=== PATIENT | male | born 1985 | race Two or more races ===

== ENCOUNTER 2025-01-14 09:12 | Inpatient (IN) | payer MEDICAID, OTHER ==
[~2025-01-14] VITALS: Ht 177.8 cm; Wt 117.4 kg
--- NOTE | 2025-01-14 09:34 | ED.PDOC ---
GI ASSESSMENT HPI Comments 39 year old male presents to the ED via EMS with a chief complaint of nausea/vomiting onset today (01/14/25) around 03:00. Per EMS, patient woke up this morning experiencing nausea/vomiting, tarry black in color, hypotensive with BP 70 systolic. Patient states he has been experiencing abdominal pain for the past week, experienced similar pain a few years ago, was told to not eat spicy food, has been consuming spicy food lately. Denies any PMHx as well as diarrhea, constipation, headache, dizziness, chest pain, shortness of breath, fevers, chills. No other symptoms or modifying factors present at this time. Chief Complaint: Nausea/Vomiting Time Seen by MD: 09:15 Primary Care Provider: NONE Reviewed Notes: Medications, Allergies Allergies: Coded Allergies: NO KNOWN ALLERGIES (Unverified , 01/14/25) Information Source: Patient, Emergency Med Personnel Mode of Arrival: EMS Timing: Hours Duration: Since onset Prehospital treatment: None Quality: Sharp Vomitus: Tarry Black Severity: Moderate Recent: None Recent Hx of: None Pain Location: Diffuse Modifying Factors: Nothing Associated sign and symptoms: Nausea, Vomiting, Abdominal Pain Past Medical History PAST MEDICAL HISTORY: Denies Surgical History: Denies all surgeries Family History Family History: Reviewed,noncontributory to illness, No family hx of Cancer, No family hx of DM, No family hx of Heart gama, No family hx of HTN, No family hx ofKidney gama, No family hx of Liver gama, No family hx of Lung gama, No family hx of Stroke Social History Smoker: Non-Smoker Alcohol: Denies ETOH Use Drugs: Denies Drug Use Lives In: Home Constitutional: denies: chills, diaphoresis, fatigue, fever, malaise, sweats, weakness, others EENTM: denies: blurred vision, double vision, ear bleeding, ear discharge, ear drainage, ear pain, ear ringing, eye pain, eye redness, hearing loss, mouth pain, mouth swelling, nasal discharge, nose bleeding, nose congestion, nose pain, photophobia, tearing, throat pain, throat swelling, voice changes, others Respiratory: denies: cough, hemoptysis, orthopnea, SOB at rest, shortness of breath, SOB with excertion, stridor, wheezing, others Cardiovascular: denies: chest pain, dizzy spells, diaphoresis, Dyspnea on exertion, edema, irregular heart beat, left arm pain, lightheadedness, palpitations, PND, syncope, others Gastrointestinal: reports: nausea, vomiting; denies: abdomen distended, abdominal pain, blood streaked bowels, constipated, diarrhea, dysphagia, difficulty swallowing, hematemesis, melena, poor appetite, poor fluid intake, rectal bleeding, rectal pain, others Genitourinary: denies: burning, dysuria, flank pain, frequency, hematuria, incontinence, penile discharge, penile sore, pain, testicle pain, testicle swelling, urgency, others Neurological: reports: others (hypotension); denies: dizziness, fainting, headache, left sided numbness, left sided weakness, numbness, paresthesia, pre- existing deficit, right sided numbness, right sided weakness, seizure, speech problems, tingling, tremors, weakness Musculoskeletal: denies: back pain, gout, joint pain, joint swelling, muscle pain, muscle stiffness, neck pain, others Integumetry: denies: bruises, change in color, change in hair/nails, dryness, laceration, lesions, lumps, rash, wounds, others Allergic/Immunocompromised: denies: Difficulty Healing, Frequent Infections, Hives, Itching, others Hematologic/Lymphatic: denies: anemia, blood clots, easy bleeding, easy bruising, swollen glands, others Endocrine: denies: excessive hunger, excessive sweating, excessive thirst, excessive urination, flushing, intolerance to cold, intolerance to heat, unexplained weight gain, unexplained weight loss, others Psychiatric: denies: anxiety, bipolar disorder, depression, hopeless, panic dis order, schizophrenia, sleepless, suicidal, others All Other Systems: Reviewed and Negative Physical Exam General Appearance: No Apparent Distress, Normal HEENT: Normal ENT Inspection, Pharynx Normal, TMs Normal Neck: Full Range of Motion, Non-Tender, Normal, Normal Inspection Respiratory: Chest Non-Tender, Lungs Clear, No Accessory Muscle Use, No Respiratory Distress, Normal Breath Sounds Cardiovascular: No Edema, No JVD, No Murmur, No Gallop, Normal Peripheral Pulses, Regular Rate/Rhythm Breast Exam: Deferred Gastrointestinal: No Organomegaly, Non Tender, No Pulsatile Mass, Normal Bowel Sounds, Soft Genitalia: Deferred Pelvic: Deferred Rectal: Deferred Extremities: No calf tenderness, Normal capillary refill, Normal inspection, Normal range of motion, Non-tender, No pedal edema Musculoskeletal : Apperance: Normal Neurologic: Alert, drawer waxer II-XII nml as Tested, No Motor Deficits, Normal Affect, Normal Mood, No Sensory Deficits Cerebellar Function: Normal Reflexes: Normal Skin: Dry, Normal Color, Warm Lymphatic: No Adenopathy Was a procedure done? Was a procedure done?: No GI differential Dx Differential Diagnosis: Gastritis/PUD, Gastroenteritis, UTI, Urolithiasis, De hydration, Electrolyte Imbalance, Viral X-Ray, Labs, Meds, VS Vital Signs Date Time Temp Pulse Resp B/P (MAP) Pulse Ox O2 Delivery O2 Flow Rate FiO2 01/14/25 10:33 88 12 98 Room Air* 0 21 01/14/25 09:23 97.9 98 15 83/57 (66) 100 97.9 01/14/25 09:16 97.9 98 15 83/57 (66) 100 97.9 Lab Test 01/14/25 09:26 Range/Units White Blood Count 15.2 H 4.4-10.8 10^3/uL Red Blood Count 4.46 L 4.5-5.90 10^6/uL Hemoglobin 14.1 13.5-17.5 g/dL Hematocrit 41.7 41.0-53.0 % Mean Corpuscular Volume 93.4 80.0-100.0 fL Mean Corpuscular Hemoglobin 31.7 28.0-32.0 pg Mean Corpuscular Hemoglobin Concent 33.9 32.0-36.0 g/dL Red Cell Distribution Width 13.1 11.8-14.3 % Platelet Count 214 140-450 10^3/uL Mean Platelet Volume 8.2 6.9-10.8 fL Neutrophils (%) (Auto) 79.3 37.0-80.0 % Lymphocytes (%) (Auto) 14.0 10.0-50.0 % Monocytes (%) (Auto) 5.2 0.0-12.0 % Eosinophils (%) (Auto) 1.1 0.0-7.0 % Basophils (%) (Auto) 0.4 0.0-2.0 % Neutrophils # (Auto) 12.1 H 1.6-8.6 10 ^3/uL Lymphocytes # (Auto) 2.1 0.4-5.4 10 ^3/uL Monocytes # (Auto) 0.8 0-1.3 10 ^3/uL Eosinophils # (Auto) 0.2 0-0.8 10 ^3/uL Basophils # (Auto) 0.1 0-0.2 10 ^3/uL Nucleated Red Blood Cells 0.0 % Sodium Level 144 136-145 mmol/L Potassium Level 4.5 3.5-5.1 mmol/L Chloride Level 108 H 98-107 mmol/L Carbon Dioxide Level 26 20-31 mmol/L Anion Gap 10 5-15 Blood Urea Nitrogen 37 H 9-23 mg/dL Creatinine 1.12 0.700-1.30 mg/dL Glomerular Filtration Rate Calc 86 >90 mL/min BUN/Creatinine Ratio 33.0 H 10.0-20.0 Serum Glucose 147 H 74-106 mg/dL Lactic Acid Level 2.0 0.4-2.0 mmol/L Calcium Level 9.2 8.7-10.4 mg/dL Total Bilirubin 0.5 0.2-1.0 mg/dL Aspartate Amino Transferase (AST) < 8 L 13-40 U/L Alanine Aminotransferase (ALT) 14 7-40 U/L Alkaline Phosphatase 77 46-116 U/L Total Protein 7.0 5.7-8.2 g/dL Albumin 4.3 3.2-4.8 g/dL Lipase 27 12-53 U/L Current Medications Medications (Trade) Dose Ordered Sig/Leidy Route Start Time Stop Time Status Last Admin Sodium Chloride 3,000 ml @ 1,000 mls/hr Q3H ONCE IV 01/14/25 09:30 01/14/25 12:29 01/14/25 09:45 Ondansetron HCl (Zofran) 4 mg ONCE ONCE IV 01/14/25 09:30 01/14/25 09:31 DC 01/14/25 09:45 Pantoprazole Sodium (Protonix) 80 mg ONCE ONCE IV 01/14/25 09:30 01/14/25 09:31 DC 01/14/25 09:45 Time of 1ST Reevaluation: 09:45 Reevaluation 1ST: Unchanged Patient Education/Counseling: Diagnosis, Treatment, Prognosis Family Education/Counseling: No Family Present Additional Information The following tests were ordered, and results were reviewed by me: CBC, CMP, LA W/REFLEX, LIPASE, XY CHEST Additional Information was gathered from interviewing the following independent historians: EMS I reviewed and agreed with the following test results read by other providers: XY CHEST I discussed treatment and results with medical personnel and: patient Comprehensive systems review obtained and negative except for what is stated in the HPI. Departure 1 Departure Time of Disposition: 11:11 (Patient presents with intractable nausea and vomiting and hypotension. Patient is not septic. We will resuscitate patient with fluids treat patient with Protonix bolus admit patient for further workup and expert consultation) Impression: Primary Impression: Hypotension Qualified Codes: I95.9 - Hypotension, unspecified Additional Impression: Intractable abdominal pain Disposition: ADMITTED INPATIENT Admit to: Med Surg Condition: Serious Critical Care Note Critical Care Time?: Yes Critical care comment: Hypotension Authorized and Performed by: Miguel aPz MD Total critical care time: Approximately 38 minutes Due to a high probability of clinically significant, life threatening deterioration, the patient required my highest level of preparedness to intervene emergently and I personally spent this critical care time directly and personally managing the patient. This critical care time included obtaining a history; examining the patient; pulse oximetry; ordering and review of studies; arranging urgent treatment with development of a management plan; evaluation of patient's response to treatment; frequent reassessment; and, discussions with other providers. This critical care time was performed to assess and manage the high probability of imminent, life-threatening deterioration that could result in multi-organ failure. It was exclusive of separately billable procedures and treating other patients and teaching time. Please see my other sections and the rest of the note for further information on patient assessment and treatment. Stability Stability form required: No I personally scribed for MIGUEL PAZ MD ([email or web address]) on 01/14/25 at 09:34. Electronically submitted by Hina Hernandez ([email or web address]). I personally scribed for MIGUEL PZA MD ([email or web address]) on 01/14/25 at 09:34. Electronically submitted by Hina Hernandez ([email or web address]). MIGUEL PAZ MD January 14, 2025 09:34
[2025-01-14 09:45] LABS: Basophils # (auto) 0.1 10 ^3/uL (0-0.2); Basophils % (auto) 0.4 % (0.0-2.0); Eosinophils # (auto) 0.2 10 ^3/uL (0-0.8); Eosinophils % (auto) 1.1 % (0.0-7.0); Hematocrit 41.7 % (41.0-53.0); Hemoglobin 14.1 g/dL (13.5-17.5); Lymphocytes # (auto) 2.1 10 ^3/uL (0.4-5.4); Mean Corpuscular Hemoglobin 31.7 pg (28.0-32.0); Mean Corpuscular Hgb Conc. 33.9 g/dL (32.0-36.0); Mean Corpuscular Volume 93.4 fL (80.0-100.0); Monocytes # (auto) 0.8 10 ^3/uL (0-1.3); Monocytes % (auto) 5.2 % (0.0-12.0); Neutrophils # (auto) 12.1 10 ^3/uL (1.6-8.6); Neutrophils % (auto) 79.3 % (37.0-80.0); Platelet Count (auto) 214 10^3/uL (140-450); Red Blood Cells 4.46 10^6/uL (4.5-5.90); Red Cell Distribution Width 13.1 % (11.8-14.3); White Blood Cell 15.2 10^3/uL (4.4-10.8)
[2025-01-14] MEDS: ONDANSETRON HCL 4 MG/2 ML VIAL IV ONE (09:45)
[2025-01-14] MEDS: SODIUM CHLORIDE 0.9% 3,000 ML IV ONE (09:45)
[2025-01-14] MEDS: PANTOPRAZOLE 40 MG/10 ML VIAL INJ IV ONE (09:45)
[2025-01-14 10:07] LABS: Alanine Aminotransferase 14 U/L (7-40); Alkaline Phosphatase 77 U/L (46-116); Anion Gap 10 (5-15); Calcium 9.2 mg/dL (8.7-10.4); Carbon Dioxide 26 mmol/L (20-31); Potassium 4.5 mmol/L (3.5-5.1); Sodium 144 mmol/L (136-145)
[2025-01-14 10:08] LABS: Albumin 4.3 g/dL (3.2-4.8); Bilirubin, Total 0.5 mg/dL (0.2-1.0)
[2025-01-14 10:19] LABS: Aspartate Aminotransferase < 8 U/L (13-40); Blood Urea Nitrogen 37 mg/dL (9-23); Chloride 108 mmol/L (98-107); Glucose 147 mg/dL (74-106)
[2025-01-14 10:31] LABS: Lipase 27 U/L (12-53)
--- NOTE | 2025-01-14 10:31 | DVH ---
EXAM: XY CHEST PORTABLE Indication: vomiting blood Technique: Single frontal view of the chest was obtained Comparison: None FINDINGS: Lines and Tubes: None Lungs: No focal consolidation. Pleura: No effusion. No pneumothorax. Cardiomediastinal contours: Unremarkable Bones: No acute osseous abnormality. IMPRESSION: No acute cardiopulmonary disease.
[2025-01-14 10:33] VITALS: PULSE 88; RESP 12; O2SAT 98
[2025-01-14] MEDS ORDERED: HYDROcodone-ACET 5/325MG TAB PO PRN (15:15)
[2025-01-14] MEDS ORDERED: NITROGLYCERIN 0.4 MG SL TAB SL PRN (15:15)
[2025-01-14] MEDS ORDERED: DEXTROSE (50%) 50ML SYRG IV PRN (15:15)
[2025-01-14] MEDS ORDERED: MORPHINE SULFATE INJ 2 MG/ml SYRG IV PRN ×2 (15:15)
[2025-01-14] MEDS ORDERED: ONDANSETRON HCL 4 MG/2 ML VIAL IV PRN (15:15)
[2025-01-14] MEDS ORDERED: ACETAMINOPHEN 325 MG TAB PO PRN (15:15)
--- NOTE | 2025-01-14 15:21 | DVHHP2 ---
History of Present Illness Reason for Visit: Abdominal pain History of Present Illness Liza Roger is a 39-year-old male with no reported past medical history who presents to the ED with nausea, vomiting, and abdominal pain x3 weeks. Patient states that that he has been vomiting dark emesis x 5 since 3am today. Patient states that there are no triggering or alleviating factors. Patient denies any chest pain, recent travels, recent ingestion of spoiled food, recent trauma or injury, fever, chills, lightheadedness, weakness, dizziness, diarrhea, hematochezia, melena, or shortness of breath. Patient does report that he had an EGD done before and states that there was a tear was also prescribed medication but does not know what the name was. He states that he does not take any current medications. Past Surgical History: Other (EGD) Family History: None Smoke: <1 pack per day ALCOHOL: none (Quit) Drugs: None Lives: with Family Domestic Violence: Neg Review of Systems Gastrointestinal: Nausea, Vomiting, Abdominal Pain, Other (Hematemesis) Allergies: Coded Allergies: NO KNOWN ALLERGIES (Unverified , 01/14/25) Medications Current Medications Medications Dose Ordered Sig/Leidy Route Start Time Stop Time Status Last Admin Dose Admin Piperacillin Sod/ Tazobactam Sod 100 ml @ 25 mls/hr Q6HR IV 01/14/25 15:15 UNV Acetaminophen/ Hydrocodone Bitart 1 tab Q4HP PRN PO 01/14/25 15:15 UNV Ondansetron HCl 4 mg Q4HP PRN IV 01/14/25 15:15 UNV Acetaminophen 650 mg Q6HP PRN PO 01/14/25 15:15 UNV Morphine Sulfate 2 mg Q4HPRN PRN IV 01/14/25 15:15 UNV Nitroglycerin 0.4 mg Q5MINP PRN SL 01/14/25 15:15 UNV Morphine Sulfate 2 mg Q30M PRN IV 01/14/25 15:15 UNV Diagnostic Test (Pha) 1 strip ACHS 01/14/25 17:00 UNV Insulin Human Regular ACHS SC 01/14/25 17:00 UNV Dextrose 50 ml UD PRN IV 01/14/25 15:15 UNV Exam Vital Signs Vital Signs Date Time Temp Pulse Resp B/P (MAP) Pulse Ox O2 Delivery O2 Flow Rate FiO2 01/14/25 13:14 97 12 101/72 (82) 94 01/14/25 10:33 Room Air* 0 21 01/14/25 09:23 97.9 97.9 General Appearance: Alert, Oriented X3, Cooperative, No acute distress HEENT: Atraumatic, PERRLA, EOMI, Mucous membr. moist/pink Respiratory: Clear to auscultation, Normal air movement Cardiovascular: Regular rate, Normal S1, Normal S2 Abdominal: Normal bowel sounds, Soft Extremities: No clubbing, No cyanosis, No edema, Normal pulses, No tenderness/swelling Skin: No significant lesion Neuro: Normal speech, Strength at 01/03 X4 ext, Normal tone, Sensation intact Psych/Mental Status: Mental status NL, Mood NL Labs/Xrays Labs Test 01/14/25 09:26 Range/Units White Blood Count 15.2 H 4.4-10.8 10^3/uL Red Blood Count 4.46 L 4.5-5.90 10^6/uL Hemoglobin 14.1 13.5-17.5 g/dL Hematocrit 41.7 41.0-53.0 % Mean Corpuscular Volume 93.4 80.0-100.0 fL Mean Corpuscular Hemoglobin 31.7 28.0-32.0 pg Mean Corpuscular Hemoglobin Concent 33.9 32.0-36.0 g/dL Red Cell Distribution Width 13.1 11.8-14.3 % Platelet Count 214 140-450 10^3/uL Mean Platelet Volume 8.2 6.9-10.8 fL Neutrophils (%) (Auto) 79.3 37.0-80.0 % Lymphocytes (%) (Auto) 14.0 10.0-50.0 % Monocytes (%) (Auto) 5.2 0.0-12.0 % Eosinophils (%) (Auto) 1.1 0.0-7.0 % Basophils (%) (Auto) 0.4 0.0-2.0 % Neutrophils # (Auto) 12.1 H 1.6-8.6 10 ^3/uL Lymphocytes # (Auto) 2.1 0.4-5.4 10 ^3/uL Monocytes # (Auto) 0.8 0-1.3 10 ^3/uL Eosinophils # (Auto) 0.2 0-0.8 10 ^3/uL Basophils # (Auto) 0.1 0-0.2 10 ^3/uL Nucleated Red Blood Cells 0.0 % Sodium Level 144 136-145 mmol/L Potassium Level 4.5 3.5-5.1 mmol/L Chloride Level 108 H 98-107 mmol/L Carbon Dioxide Level 26 20-31 mmol/L Anion Gap 10 5-15 Blood Urea Nitrogen 37 H 9-23 mg/dL Creatinine 1.12 0.700-1.30 mg/dL Glomerular Filtration Rate Calc 86 >90 mL/min BUN/Creatinine Ratio 33.0 H 10.0-20.0 Serum Glucose 147 H 74-106 mg/dL Lactic Acid Level 2.0 0.4-2.0 mmol/L Calcium Level 9.2 8.7-10.4 mg/dL Total Bilirubin 0.5 0.2-1.0 mg/dL Aspartate Amino Transferase (AST) < 8 L 13-40 U/L Alanine Aminotransferase (ALT) 14 7-40 U/L Alkaline Phosphatase 77 46-116 U/L Total Protein 7.0 5.7-8.2 g/dL Albumin 4.3 3.2-4.8 g/dL Lipase 27 12-53 U/L Exam: CT CT AB PEL WO CON-NO ORAL OR IV History: abd pain Comparison Study: None TECHNIQUE: Multidetector CT of the abdomen and pelvis without IV contrast. Axial, coronal and sagittal multiplanar reformats were obtained from the axial data set by the technologist. Radiation Dose Information: CT Dose: CTDI volume is 17.67 mGy. Dose-length product is 974.21 mGy*cm FINDINGS: The lung bases are clear. Partially visualized heart is unremarkable. Liver, spleen, gallbladder, pancreas and adrenal glands are unremarkable. 3.2 cm right renal cyst. Otherwise, kidneys, ureters and urinary bladder unremarkable. Prostate is unremarkable. Mild gastric wall thickening. Small bowel loops are unremarkable. Appendix is unremarkable. Moderate to large amount of fecal material within the colon. No evidence of intraperitoneal free air or free fluid. No evidence of aortic aneurysm. Mild atherosclerotic calcification of the aorta. No significant lymphadenopathy. Tiny fat containing umbilical hernia. Soft tissues unremarkable. No acute bony abnormalities. Sclerotic focus of the right iliac bone and right proximal femur which may represent bone islands with blastic lesions not excluded. IMPRESSION: Mild gastric wall thickening which may be be from inadequate distention/gastritis. Moderate to large amount of fecal material within the colon. 3.2 cm right renal cyst. EXAM: XY CHEST PORTABLE Indication: vomiting blood Technique: Single frontal view of the chest was obtained Comparison: None FINDINGS: Lines and Tubes: None Lungs: No focal consolidation. Pleura: No effusion. No pneumothorax. Cardiomediastinal contours: Unremarkable Bones: No acute osseous abnormality. IMPRESSION: No acute cardiopulmonary disease. Assessment/Plan Assessment/Plan Assessment Intractable abdominal pain rule out GI bleed Leukocytosis likely due to gastritis Hyperglycemia 3.2 cm right renal cyst Plan Admit to [facility] CT abdomen and pelvis noted Stool occult Bowel regimen Hemoglobin A1c ISS and Accu-Cheks UA Antiemetics Pain management Diet DVT prophylaxis-not indicated patient ambulating, hold anti coags due to hematemesis PUD prophylaxis-PPIs Discussed plan of care with patient and nurse GI consult Plan discussed with: Patient My Orders Orders - WANDA MOSS [employer] Procedure Category Date Status Time Piperacillin-Tazob PHA 01/14/25 Logged 3.375gm (Zosyn 3.375g 15:15 Stool Occult Blood LAB 01/14/25 Logged 15:01 Admit ADMIT 01/14/25 Transmitted 15:01 Allergies SUHA 01/14/25 In Process 15:01 Code Status CODE 01/14/25 Transmitted 15:01 Hydrocodone-Acet PHA 01/14/25 Logged 5/325mg Tab ([place] 15:15 Ondansetron Hcl PHA 01/14/25 Logged (Zofran) 15:15 Complete Blood Count LAB 01/15/25 Verified 04:00 Comprehensive LAB 01/15/25 Verified Metabolic Panel 04:00 Cardiac DIET 01/14/25 Transmitted Diet-2gna,Lofat,Lochol Dinner Acetaminophen Tablet PHA 01/14/25 Logged (Tylenol Tablet) 15:15 Morphine Sulfate PHA 01/14/25 Logged Injection 15:15 Sequential SUHA 01/14/25 In Process Compression Device Nitroglycerin PHA 01/14/25 Logged Sublingual (Ntrostat 15:15 Morphine Sulfate PHA 01/14/25 Logged Injection 15:15 Stat Ekg For Chest SUHA 01/14/25 In Process Pain 15:01 Notify Of Changes SUHA 01/14/25 In Process From Base 15:01 Electronics Recycler For SUHA 01/14/25 In Process 24 Hours 15:01 Emergency Dysrhythmia SUHA 01/14/25 In Process Protocol 15:01 Rhythm Strips Once [facility] 01/14/25 In Process Every Shift 15:01 Oxygen By Nasal RT 01/14/25 Transmitted Cannula 15:01 Glucose Blood PHA 01/14/25 Logged (Accu-Chek Comfort 17:00 Insulin R (Human) PHA 01/14/25 Logged (Insulin R) 17:00 Dextrose 50% Syringe PHA 01/14/25 Logged 15:15 Hemoglobin A1c LAB 01/14/25 In Process 15:01 Urinalysis LAB 01/14/25 Logged 15:01 Ct Ab Pel Wo Con-No CT 01/14/25 Logged Oral Or Iv 15:01 Date of Service: January 14, 2025 Billing Provider: WANDA MOSS Common Visit Codes: [id number] INP/OBS CARE (HIGH) WANDA MOSS January 14, 2025 15:21
--- NOTE | 2025-01-14 15:46 | DVH ---
Exam: CT CT AB PEL WO CON-NO ORAL OR IV History: abd pain Comparison Study: None TECHNIQUE: Multidetector CT of the abdomen and pelvis without IV contrast. Axial, coronal and sagitta l multiplanar reformats were obtained from the axial data set by the technologist. Radiation Dose Information: CT Dose: CTDI volume is 17.67 mGy. Dose-length product is 974.21 mGy*cm FINDINGS: The lung bases are clear. Partially visualized heart is unremarkable. Liver, spleen, gallbladder, pancreas and adrenal glands are unremarkable. 3.2 cm right renal cyst. Otherwise, kidneys, ureters and urinary bladder unremarkable. Prostate is u nremarkable. Mild gastric wall thickening. Small bowel loops are unremarkable. Appendix is unremarkable. Moderate to large amount of fecal material within the colon. No evidence of intraperitoneal free air or free fluid. No evidence of aortic aneurysm. Mild atherosclerotic calcification of the aorta. No significant lymphadenopathy. Tiny fat containing umbilical hernia. Soft tissues unremarkable. No acute bony abnormalities. Sclero tic focus of the right iliac bone and right proximal femur which may represent bone islands with marcus tic lesions not excluded. IMPRESSION: Mild gastric wall thickening which may be be from inadequate distention/gastritis. Moderate to large amount of fecal material within the colon. 3.2 cm right renal cyst.
[2025-01-14] MEDS: PIPERACILLIN-TAZOB 3.375GM 100 ML IV ONE (16:26)
[2025-01-14] MEDS: InsuLIN REG 1unit/0.01ml Soln (100units/ml) SC SCH (17:00)
[2025-01-14] MEDS: ACCU-CHEK COMFORT CURVE STRIP VI SCH (17:00)
[2025-01-14] MEDS: POLYETHYLENE GLYCOL 17 GM PWDR PO SCH (18:24)
[2025-01-14] MEDS: PANTOPRAZOLE 40 MG/10 ML VIAL INJ IV SCH (18:24)
[2025-01-14 18:31] VITALS: BP 103/69; PULSE 87; TEMP 97.8; O2SAT 98
[2025-01-14 18:42] VITALS: PULSE 87; RESP 18; O2SAT 98
[2025-01-14 18:47] VITALS: BP 103/69; PULSE 87; RESP 18; TEMP 97.8; O2SAT 98
--- NOTE | 2025-01-14 18:49 | ECG ---
[facility] Test Date: 2025-01-14 Test Time: 09:14:00 Pat Name: LINDA LICONA Department: ED Room: 0212 B Gender: M Squad Boss: CLAUDINE : 1985 Requested By: MIGUEL BUTTERFIELD Order Number: [id number] Reading MD: Dave Barahona Measurements Intervals [place] Rate: 99 P: 23 FL: 160 QRS: 37 QRSD: 81 T: 33 QT: 338 QTc: 434 Interpretive Statements Sinus rhythm Electronically Signed On 01-15-2025 21:02:05 PDT by Dave Barahona Please click the below link to view image of tracing.
[2025-01-14 21:00] VITALS: BP 99/68; PULSE 83; RESP 18; TEMP 98; O2SAT 97
[2025-01-14 21:05] LABS: Urine Bacteria None Seen /hpf (None Seen)
[2025-01-14] MEDS: PIPERACILLIN-TAZOB 3.375GM 100 ML IV SCH (21:07)
[2025-01-14 21:10] LABS: Urine Blood Negative /uL (Negative); Urine Clarity Clear (Clear); Urine Color Light-Yellow (Yellow); Urine Protein, UAD Negative (Negative); Urine Specific Gravity 1.035 (1.001-1.035); Urine Squamous Epithelial Cell None Seen /hpf (<5); Urine Urobilinogen Normal (Negative); Urine WBC 2 /HPF (0-3); Urine pH 6.5 (5.0-9.0)
[2025-01-14] MEDS: SENNA 8.6 MG TAB PO SCH (21:21)
[2025-01-15] VITALS (8 sets, daily range): BP systolic 91–104; BP diastolic 54–66; PULSE 62–74; RESP 15–20; TEMP 97.9–98.8; O2SAT 94–100
[2025-01-15 06:57] LABS: Basophils # (auto) 0 10 ^3/uL (0-0.2); Basophils % (auto) 0.5 % (0.0-2.0); Eosinophils # (auto) 0.4 10 ^3/uL (0-0.8); Eosinophils % (auto) 3.6 % (0.0-7.0); Hematocrit 31.9 % (41.0-53.0); Hemoglobin 11.1 g/dL (13.5-17.5); Lymphocytes # (auto) 3.5 10 ^3/uL (0.4-5.4); Lymphocytes % (auto) 35.1 % (10.0-50.0); Mean Corpuscular Hemoglobin 32.5 pg (28.0-32.0); Mean Corpuscular Hgb Conc. 34.7 g/dL (32.0-36.0); Mean Corpuscular Volume 93.8 fL (80.0-100.0); Monocytes # (auto) 0.5 10 ^3/uL (0-1.3); Monocytes % (auto) 5.5 % (0.0-12.0); Neutrophils # (auto) 5.5 10 ^3/uL (1.6-8.6); Neutrophils % (auto) 55.3 % (37.0-80.0); Nucleated Red Blood Cells % 0.1 %; Platelet Count (auto) 175 10^3/uL (140-450)
[2025-01-15 07:04] LABS: Alkaline Phosphatase 62 U/L (46-116); Anion Gap 10 (5-15); BUN/Creatinine Ratio 28.6 (10.0-20.0); Calcium 8.9 mg/dL (8.7-10.4); Carbon Dioxide 23 mmol/L (20-31); Glucose 105 mg/dL (74-106); Potassium 3.8 mmol/L (3.5-5.1); Sodium 141 mmol/L (136-145); Total Protein 5.7 g/dL (5.7-8.2)
[2025-01-15 07:05] LABS: Albumin 3.6 g/dL (3.2-4.8); Bilirubin, Total 0.5 mg/dL (0.2-1.0)
[2025-01-15 07:17] LABS: Alanine Aminotransferase 9 U/L (7-40); Aspartate Aminotransferase < 8 U/L (13-40); Blood Urea Nitrogen 30 mg/dL (9-23); Chloride 108 mmol/L (98-107)
--- NOTE | 2025-01-15 17:32 | DVHPN2 ---
Subjective 39-year-old male came with hematemesis and melena for 3 weeks Apparently he has been having the pain for about 3 weeks and he has been taking Motrin and energy drinks He drinks lot of energy drinks, he is also a smoker of half a pack of cigarettes a day He also drinks beers on the weekends He drinks coffee and power drinks, he is a front load trash truck driver He had GI bleed in the past Changes from previous H/P or p: Changes Gastrointestinal: Nausea, Vomiting, Abdominal Pain, Other (Hematemesis) Objective Vitals Vital Signs Date Time Temp Pulse Resp B/P (MAP) Pulse Ox O2 Delivery O2 Flow Rate FiO2 01/15/25 16:21 98.7 71 16 94/58 (70) 98 98.7 01/15/25 08:00 Room Air* 0 21 Intake/Output Intake and Output 01/15/25 07:00 Intake Total 950 ml Output Total 700 ml Balance 250 ml Intake Oral 950 ml Output Urine Total 700 ml # Voids 1 General Appearance: Alert, Oriented X3, Cooperative, No acute distress Lungs: Clear to auscultation, Normal air movement Cardiovascular: Regular rate, Normal S1, Normal S2, No murmurs Abdomen: Normal bowel sounds, Soft, No tenderness Extremities: No edema Medications Current Medications Medications Dose Ordered Sig/Leidy Route Start Time Stop Time Status Last Admin Dose Admin Piperacillin Sod/ Tazobactam Sod 100 ml @ 25 mls/hr Q6H IV 01/14/25 22:00 01/15/25 16:06 25 MLS/HR Acetaminophen/ Hydrocodone Bitart 1 tab Q4HP PRN PO 01/14/25 15:15 Ondansetron HCl 4 mg Q4HP PRN IV 01/14/25 15:15 Acetaminophen 650 mg Q6HP PRN PO 01/14/25 15:15 Morphine Sulfate 2 mg Q4HPRN PRN IV 01/14/25 15:15 Nitroglycerin 0.4 mg Q5MINP PRN SL 01/14/25 15:15 Morphine Sulfate 2 mg Q30M PRN IV 01/14/25 15:15 Pantoprazole Sodium 40 mg DAILY IV 01/14/25 17:00 01/15/25 09:35 40 MG Polyethylene Glycol 17 gm DAILY PO 01/14/25 17:15 01/14/25 18:24 17 GM Sennosides 8.6 mg HS PO 01/14/25 22:00 Laboratory Results Laboratory Tests 01/15/25 05:05 Chemistry Test 01/15/25 05:05 Albumin 3.6 g/dL (3.2-4.8) Calcium Level 8.9 mg/dL (8.7-10.4) Total Protein 5.7 g/dL (5.7-8.2) LFT Test 01/15/25 05:05 Alanine Aminotransferase (ALT) 9 U/L (7-40) Alkaline Phosphatase 62 U/L (46-116) Aspartate Amino Transferase (AST) < 8 U/L (13-40) L Total Bilirubin 0.5 mg/dL (0.2-1.0) Urinalysis Test 01/14/25 20:15 Urine Color Light-yellow (Yellow) Urine Clarity Clear (Clear) Urine pH 6.5 (5.0-9.0) Urine Specific [place] 1.035 (1.001-1.035) Urine Protein Negative (Negative) Urine Ketones Negative (Negative) Urine Blood Negative /uL (Negative) Urine Nitrite Negative (Negative) Urine Bilirubin Negative (Negative) Urine Urobilinogen Normal mg/dL (Negative) Urine Leukocyte Esterase Negative /uL (Negative) Urine RBC 1 /hpf (0 - 3) Urine Microscopic WBC 2 /HPF (0-3) Urine Squamous Epithelial Cells None seen /hpf (<5) Urine Bacteria None seen /hpf (None Seen) Urine Glucose Normal mg/dL (Normal) Microbiology Microbiology Date/Time Source Procedure Growth Status 01/14/25 10:20 Blood Blood Culture - Preliminary NO GROWTH AFTER 24 HOURS OF INCUBATION. Resulted Assessment/Plan Assessment/Plan Upper GI bleed Abdominal pain Right renal cyst Leukocytosis Plan Keep NPO IV fluids IV Protonix 40 mg IV twice a day GI consult Monitor the hemoglobin Full code Advance directives discussed with the patient for 19 minutes Discussed with the at the bedside Plan discussed with: Patient Date of Service: January 15, 2025 Billing Provider: SILVIANO SWIFT MD Common Visit Codes: [id number] INP/OBS CARE(HIGH) Secondary Visit Codes: [id number] CARE PLAN 30 MINUTES SILVIANO SWIFT MD January 15, 2025 17:32
--- NOTE | 2025-01-15 19:24 | DVHINCON2 ---
Date of service: January 15, [address] Bernstein Reason for Consultation Abdominal pain nausea vomiting hematemesis and melanotic stools. History of Present Illness This 39-year-old male presented to the emergency room with nausea vomiting the pain was in the epigastric area with the same persistent nausea vomiting ulcer some black stools patient had been experiencing severe abdominal pain about a week. Denied any hematemesis or hematemesis but had melanotic stools which was black stools. Past Medical History Patient has history of ulcer ,gastric problems in the past and possible ulcer had EGD done about three years ago Past Surgical History None Family History: Patient reports no known family medical history. Family History Noncontributory Social History Moderate drinking no smoking Allergies: Coded Allergies: NO KNOWN ALLERGIES (Unverified , 01/14/25) Current Medications Current Medications Medications (Trade) Dose Ordered Sig/Leidy Route PRN Reason Start Time Stop Time Status Last Admin Piperacillin Sod/ Tazobactam Sod 100 ml @ 25 mls/hr Q6H IV 01/14/25 22:00 01/15/25 16:06 Sennosides (Senokot Tablet) 8.6 mg HS PO 01/14/25 22:00 01/15/25 17:32 DC Pantoprazole Sodium (Protonix) 40 mg BID IV 01/15/25 22:00 Review of Systems Unremarkable Vital Signs Vital Signs Date Time Temp Pulse Resp B/P (MAP) Pulse Ox O2 Delivery O2 Flow Rate FiO2 01/15/25 16:21 98.7 71 16 94/58 (70) 98 98.7 01/15/25 08:00 Room Air* 0 21 Physical Exam Moderately built and nourished male in no acute distress Vitals stable Lungs clear HEENT examination no pallor Abdomen is soft mild tenderness in the epigastrium no rigidity no guarding no masses bowel sounds normal Extremities no edema Labs/Diagnostic Data Labs Test 01/15/25 05:46 01/15/25 05:05 01/14/25 20:45 01/14/25 20:15 Range/Units POC Glucose 112 H 70-106 mg/dl White Blood Count 10.0 # 4.4-10.8 10^3/uL Red Blood Count 3.40 L 4.5-5.90 10^6/uL Hemoglobin 11.1 #L 13.5-17.5 g/dL Hematocrit 31.9 #L 41.0-53.0 % Mean Corpuscular Volume 93.8 80.0-100.0 fL Mean Corpuscular Hemoglobin 32.5 H 28.0-32.0 pg Mean Corpuscular Hemoglobin Concent 34.7 32.0-36.0 g/dL Red Cell Distribution Width 13.0 11.8-14.3 % Platelet Count 175 140-450 10^3/uL Mean Platelet Volume 8.5 6.9-10.8 fL Neutrophils (%) (Auto) 55.3 37.0-80.0 % Lymphocytes (%) (Auto) 35.1 10.0-50.0 % Monocytes (%) (Auto) 5.5 0.0-12.0 % Eosinophils (%) (Auto) 3.6 0.0-7.0 % Basophils (%) (Auto) 0.5 0.0-2.0 % Neutrophils # (Auto) 5.5 1.6-8.6 10 ^3/uL Lymphocytes # (Auto) 3.5 0.4-5.4 10 ^3/uL Monocytes # (Auto) 0.5 0-1.3 10 ^3/uL Eosinophils # (Auto) 0.4 0-0.8 10 ^3/uL Basophils # (Auto) 0 0-0.2 10 ^3/uL Nucleated Red Blood Cells 0.1 % Sodium Level 141 136-145 mmol/L Potassium Level 3.8 3.5-5.1 mmol/L Chloride Level 108 H 98-107 mmol/L Carbon Dioxide Level 23 20-31 mmol/L Anion Gap 10 5-15 Blood Urea Nitrogen 30 H 9-23 mg/dL Creatinine 1.05 0.700-1.30 mg/dL Glomerular Filtration Rate Calc 93 >90 mL/min BUN/Creatinine Ratio 28.6 H 10.0-20.0 Serum Glucose 105 74-106 mg/dL Calcium Level 8.9 8.7-10.4 mg/dL Total Bilirubin 0.5 0.2-1.0 mg/dL Aspartate Amino Transferase (AST) < 8 L 13-40 U/L Alanine Aminotransferase (ALT) 9 7-40 U/L Alkaline Phosphatase 62 46-116 U/L Total Protein 5.7 5.7-8.2 g/dL Albumin 3.6 3.2-4.8 g/dL Stool Occult Blood Positive Negative Stool Occult Blood Sample #3 Negative Urine Color Light-yellow Yellow Urine Clarity Clear Clear Urine pH 6.5 5.0-9.0 Urine Specific [place] 1.035 1.001-1.035 Urine Protein Negative Negative Urine Ketones Negative Negative Urine Blood Negative Negative /uL Urine Nitrite Negative Negative Urine Bilirubin Negative Negative Urine Urobilinogen Normal Negative mg/dL Urine Leukocyte Esterase Negative Negative /uL Urine RBC 1 0 - 3 /hpf Urine Microscopic WBC 2 0-3 /HPF Urine Squamous Epithelial Cells None seen <5 /hpf Urine Bacteria None seen None Seen /hpf Urine Glucose Normal Normal mg/dL Test 01/14/25 09:26 Range/Units Hemoglobin A1c 5.3 <5.7 % A1C Lactic Acid Level 2.0 0.4-2.0 mmol/L Lipase 27 12-53 U/L Microbiology Date/Time Source Procedure Growth Status 01/14/25 10:20 Blood Blood Culture - Preliminary NO GROWTH AFTER 24 HOURS OF INCUBATION. Resulted Assessment 39-year-old male with complaints of nausea vomiting hematemesis history of gastric problems with a past history of ulcers history of black stools as well as severe persistent nausea and vomiting for a week. Hemoglobin is 11 physical examination showed some tenderness in the epigastrium Possibilities possible gastric ulcer or duodenal ulcer with bleeding Anemia Plan/Recommendation We will recommend to follow the hemoglobin closely Treat with PPIs EGD evaluation Procedure risks benefits alternatives explained to the patient and agreeable for the same Thank you Dr. Bernstein for asking me to take part in the care of this pleasant man Regards Dr. Uriarte Plan discussed with: Patient CHERRIE URIARTE MD January 15, 2025 19:24
[2025-01-15] MEDS: PANTOPRAZOLE 40 MG/10 ML VIAL INJ IV SCH (23:08)
[2025-01-16] VITALS (9 sets, daily range): BP systolic 92–121; BP diastolic 56–75; PULSE 58–75; RESP 9–22; TEMP 97.7–98.8; O2SAT 90–100
[2025-01-16 10:17] LABS: Basophils # (auto) 0 10 ^3/uL (0-0.2); Basophils % (auto) 0.7 % (0.0-2.0); Eosinophils # (auto) 0.5 10 ^3/uL (0-0.8); Eosinophils % (auto) 8.2 % (0.0-7.0); Hematocrit 28.5 % (41.0-53.0); Hemoglobin 9.9 g/dL (13.5-17.5); Lymphocytes # (auto) 1.9 10 ^3/uL (0.4-5.4); Lymphocytes % (auto) 34.9 % (10.0-50.0); Mean Corpuscular Hemoglobin 32.8 pg (28.0-32.0); Mean Corpuscular Hgb Conc. 34.8 g/dL (32.0-36.0); Mean Corpuscular Volume 94.2 fL (80.0-100.0); Monocytes # (auto) 0.5 10 ^3/uL (0-1.3); Monocytes % (auto) 8.8 % (0.0-12.0); Neutrophils # (auto) 2.6 10 ^3/uL (1.6-8.6); Neutrophils % (auto) 47.4 % (37.0-80.0); Platelet Count (auto) 171 10^3/uL (140-450); Red Blood Cells 3.03 10^6/uL (4.5-5.90); Red Cell Distribution Width 12.7 % (11.8-14.3); White Blood Cell 5.5 10^3/uL (4.4-10.8)
[2025-01-16 10:31] LABS: INR 1.01 (0.9-1.15); Partial Thromboplastin Time 24.5 SEC (24.5-34.5); Prothrombin Time 10.7 sec (9.3-11.8)
[2025-01-16 10:34] LABS: Albumin 3.7 g/dL (3.2-4.8); Alkaline Phosphatase 59 U/L (46-116); Anion Gap 6 (5-15); BUN/Creatinine Ratio 16.8 (10.0-20.0); Bilirubin, Total 0.4 mg/dL (0.2-1.0); Blood Urea Nitrogen 18 mg/dL (9-23); Calcium 8.9 mg/dL (8.7-10.4); Carbon Dioxide 27 mmol/L (20-31); Glucose 97 mg/dL (74-106); Magnesium 1.9 mg/dL (1.6-2.6); Potassium 3.8 mmol/L (3.5-5.1); Sodium 143 mmol/L (136-145); Total Protein 5.8 g/dL (5.7-8.2)
[2025-01-16 10:40] LABS: Alanine Aminotransferase 9 U/L (7-40); Aspartate Aminotransferase 10 U/L (13-40); Chloride 110 mmol/L (98-107)
[2025-01-16] MEDS ORDERED: LIDOCAINE 2% (LOCAL ANESTH.) PF 5ml SDV ONE (10:40)
[2025-01-16] MEDS ORDERED: ONDANSETRON HCL 4 MG/2 ML VIAL ONE (10:40)
[2025-01-16] MEDS ORDERED: GLYCOPYRROLATE 0.2 MG/ML 1ML VIAL ONE (10:40)
[2025-01-16] MEDS ORDERED: fentaNYL CITRATE 100 MCG/2 ML VL ONE (10:40)
[2025-01-16] MEDS ORDERED: PROPOFOL 10 MG/ML 20 ML IV ONE (10:40)
[2025-01-16] MEDS ORDERED: MIDAZOLAM HCL 2MG/2ML 2ml VIAL (1mg/ml) ONE (10:40)
--- NOTE | 2025-01-16 11:06 | DVHOP2 ---
Operative Report DATE OF PROCEDURE: 01/16/25 INDICATIONS FOR THE PROCEDURE: GI bleeding anemia PROCEDURE PERFORMED: 1. Esophagogastroduodenoscopy and endo clipping for bleeding duodenal ulcer Esophagogastroduodenoscopy and cold biopsy from the gastric antrum for H pylori POSTOPERATIVE DIAGNOSIS: Duodenal ulcer of the apex of the bulb posteriorly with active oozing endoclipping done with a good hemostasis two clips put in Mild gastritis in the antrum biopsies taken to ensure no H pylori INFORMED CONSENT: The risks and benefits and alternatives were explained to the patient and informed consent was obtained. PROCEDURE IN DETAIL: The patient was kept NPO after midnight. In the endoscopy room, he wasgiven MAC anesthesia to get him sedated. Olympus gastroscope was passed through the oropharynx into the stomach and the duodenum, and the findings were as follows. Esophagus: 1 cm hiatal No Esophagitis No Esophageal ulcer No Esophageal stricture No varices No active bleeding from this often Stomach: Fundus: Old blood in the fundus Body and antrum Mild erythema in the antrum suggestive of gastritis biopsies taken with cold biopsy forceps to rule out H pylori Pylorus normal Duodenum At the apex of the bulb 1 cm ulcer with active oozing and hence endoclipping done with two Endoclips with good hemostasis Rest of the duodenum was unremarkable Endoscopic impression Duodenal ulcer of the apex of the bulb posteriorly with the active bleeding endoclipping done with hemostasis Mild antral gastritis biopsies taken with cold biopsy forceps for which Suggestions Await the biopsy results Aggressive treatment with PPIs and Carafate With a hemoglobin closely Clear liquids only for 24 hours and if no further bleeding or no pains we will recommend to advance diet slowly We will recommend to observe him at least for 24 hours to 48 hours if possible Thank you for asking me to take part in the care of this pleasant patient Dr. Uriarte ENDOSCOPIC IMPRESSION: SUGGESTIONS: With warm regards, CHERRIE URIARTE MD January 16, 2025 11:06
[2025-01-16] MEDS ORDERED: HYDROmorphone HCL 2 MG/ML VL/or syr IV PRN (11:15)
--- NOTE | 2025-01-16 12:54 | DVHPN2 ---
Subjective He is better No nausea or vomiting No hematemesis or melena Hemoglobin dropped to 9.9 He is scheduled for EGD today which showed a duodenal ulcer of the apex of the bulb with active oozing and mild gastritis Changes from previous H/P or p: Changes Gastrointestinal: Nausea, Vomiting, Abdominal Pain, Other (Hematemesis) Objective Vitals Vital Signs Date Time Temp Pulse Resp B/P (MAP) Pulse Ox O2 Delivery O2 Flow Rate FiO2 01/16/25 11:24 Room Air 01/16/25 11:24 58 15 100 01/16/25 11:22 107/65 (79) 01/16/25 11:07 97.0 97.0 01/16/25 11:07 6.0 100 Intake/Output Intake and Output 01/16/25 07:00 Intake Total 2000 ml Balance 2000 ml Intake Oral 1700 ml IV Total 300 ml # Voids 7 General Appearance: Alert, Oriented X3, Cooperative, No acute distress Lungs: Clear to auscultation, Normal air movement Cardiovascular: Regular rate, Normal S1, Normal S2, No murmurs Abdomen: Normal bowel sounds, Soft, No tenderness Extremities: No edema Medications Current Medications Medications Dose Ordered Sig/Leidy Route Start Time Stop Time Status Last Admin Dose Admin Piperacillin Sod/ Tazobactam Sod 100 ml @ 25 mls/hr Q6H IV 01/14/25 22:00 01/16/25 03:59 25 MLS/HR Ondansetron HCl 4 mg Q4HP PRN IV 01/14/25 15:15 Acetaminophen 650 mg Q6HP PRN PO 01/14/25 15:15 Morphine Sulfate 2 mg Q4HPRN PRN IV 01/14/25 15:15 Nitroglycerin 0.4 mg Q5MINP PRN SL 01/14/25 15:15 Morphine Sulfate 2 mg Q30M PRN IV 01/14/25 15:15 Pantoprazole Sodium 40 mg BID IV 01/15/25 22:00 01/16/25 12:17 40 MG Laboratory Results Laboratory Tests 01/16/25 09:58 Chemistry Test 01/16/25 09:58 Albumin 3.7 g/dL (3.2-4.8) Calcium Level 8.9 mg/dL (8.7-10.4) Magnesium Level 1.9 mg/dL (1.6-2.6) Total Protein 5.8 g/dL (5.7-8.2) Coagulation Test 01/16/25 09:58 Prothrombin Time 10.7 sec (9.3-11.8) Prothrombin Time INR 1.01 (0.9-1.15) Activated Partial Thromboplast Time 24.5 SEC (24.5-34.5) LFT Test 01/16/25 09:58 Alanine Aminotransferase (ALT) 9 U/L (7-40) Alkaline Phosphatase 59 U/L (46-116) Aspartate Amino Transferase (AST) 10 U/L (13-40) L Total Bilirubin 0.4 mg/dL (0.2-1.0) Urinalysis Test 01/14/25 20:15 Urine Color Light-yellow (Yellow) Urine Clarity Clear (Clear) Urine pH 6.5 (5.0-9.0) Urine Specific [place] 1.035 (1.001-1.035) Urine Protein Negative (Negative) Urine Ketones Negative (Negative) Urine Blood Negative /uL (Negative) Urine Nitrite Negative (Negative) Urine Bilirubin Negative (Negative) Urine Urobilinogen Normal mg/dL (Negative) Urine Leukocyte Esterase Negative /uL (Negative) Urine RBC 1 /hpf (0 - 3) Urine Microscopic WBC 2 /HPF (0-3) Urine Squamous Epithelial Cells None seen /hpf (<5) Urine Bacteria None seen /hpf (None Seen) Urine Glucose Normal mg/dL (Normal) Microbiology Microbiology Date/Time Source Procedure Growth Status 01/14/25 10:20 Blood Blood Culture - Preliminary NO GROWTH AFTER 48 HOURS OF INCUBATION. Resulted Assessment/Plan Assessment/Plan Upper GI bleed Abdominal pain Right renal cyst Leukocytosis Plan Keep NPO IV fluids IV Protonix 40 mg IV twice a day GI consult Monitor the hemoglobin Full code Advance directives discussed with the patient for 19 minutes Discussed with the at the bedside 01/16/2025: Upper GI bleed due to duodenal ulcer Acute anemia due to blood loss Continue IV Protonix Discontinue Zosyn, no evidence of infection Plan discussed with: Patient My Orders Orders - SILVIANO SWIFT MD Procedure Category Date Status Time Npo Except Ice Chips SUHA 01/15/25 In Process 17:27 Pantoprazole PHA 01/15/25 In Process (Protonix) 22:00 Date of Service: January 16, 2025 Billing Provider: SILVIANO SWIFT MD Common Visit Codes: [id number] INP/OBS CARE(HIGH) SILVIANO SWIFT MD January 16, 2025 12:54
[2025-01-17 05:00] VITALS: BP 109/61; PULSE 59; RESP 20; TEMP 97.9; O2SAT 100
[2025-01-17 06:31] LABS: Basophils # (auto) 0 10 ^3/uL (0-0.2); Basophils % (auto) 0.1 % (0.0-2.0); Eosinophils # (auto) 0 10 ^3/uL (0-0.8); Eosinophils % (auto) 0.2 % (0.0-7.0); Hematocrit 28.4 % (41.0-53.0); Lymphocytes # (auto) 1.5 10 ^3/uL (0.4-5.4); Lymphocytes % (auto) 17.3 % (10.0-50.0); Mean Corpuscular Hemoglobin 32.5 pg (28.0-32.0); Mean Corpuscular Hgb Conc. 35.1 g/dL (32.0-36.0); Mean Corpuscular Volume 92.8 fL (80.0-100.0); Monocytes # (auto) 0.6 10 ^3/uL (0-1.3); Monocytes % (auto) 6.6 % (0.0-12.0); Neutrophils # (auto) 6.6 10 ^3/uL (1.6-8.6); Neutrophils % (auto) 75.8 % (37.0-80.0); Nucleated Red Blood Cells % 0.1 %; Platelet Count (auto) 181 10^3/uL (140-450); Red Blood Cells 3.06 10^6/uL (4.5-5.90); Red Cell Distribution Width 12.4 % (11.8-14.3); White Blood Cell 8.7 10^3/uL (4.4-10.8)
[2025-01-17 06:45] LABS: Chloride 107 mmol/L (98-107); Potassium 3.7 mmol/L (3.5-5.1); Sodium 139 mmol/L (136-145)
[2025-01-17 06:46] LABS: Anion Gap 10 (5-15); Calcium 9.2 mg/dL (8.7-10.4); Carbon Dioxide 22 mmol/L (20-31)
[2025-01-17 06:51] LABS: BUN/Creatinine Ratio 13.3 (10.0-20.0); Blood Urea Nitrogen 11 mg/dL (9-23); Glucose 104 mg/dL (74-106)
[2025-01-17 06:52] LABS: Magnesium 1.9 mg/dL (1.6-2.6)
[2025-01-17 08:00] VITALS: PULSE 57; RESP 18; O2SAT 99
[2025-01-17 08:34] VITALS: BP 106/63; PULSE 57; RESP 18; TEMP 97.8; O2SAT 99
[2025-01-17] MEDS ORDERED: PANT40TA2 PO (10:15)
--- NOTE | 2025-01-17 10:19 | DVHDS2 ---
Discharge Summary Date of Admission January 14, 2025 at 15:01 Date of Discharge: January 17, 2025 Labs/Diagnostic Data: Laboratory Results Test 01/17/25 05:02 01/16/25 09:58 01/15/25 05:46 01/14/25 20:45 White Blood Count 8.7 10^3/uL (4.4-10.8) Red Blood Count 3.06 10^6/uL (4.5-5.90) Hemoglobin 10.0 g/dL (13.5-17.5) Hematocrit 28.4 % (41.0-53.0) Mean Corpuscular Volume 92.8 fL (80.0-100.0) Mean Corpuscular Hemoglobin 32.5 pg (28.0-32.0) Mean Corpuscular Hemoglobin Concent 35.1 g/dL (32.0-36.0) Red Cell Distribution Width 12.4 % (11.8-14.3) Platelet Count 181 10^3/uL (140-450) Mean Platelet Volume 8.4 fL (6.9-10.8) Neutrophils (%) (Auto) 75.8 % (37.0-80.0) Lymphocytes (%) (Auto) 17.3 % (10.0-50.0) Monocytes (%) (Auto) 6.6 % (0.0-12.0) Eosinophils (%) (Auto) 0.2 % (0.0-7.0) Basophils (%) (Auto) 0.1 % (0.0-2.0) Neutrophils # (Auto) 6.6 10 ^3/uL (1.6-8.6) Lymphocytes # (Auto) 1.5 10 ^3/uL (0.4-5.4) Monocytes # (Auto) 0.6 10 ^3/uL (0-1.3) Eosinophils # (Auto) 0 10 ^3/uL (0-0.8) Basophils # (Auto) 0 10 ^3/uL (0-0.2) Nucleated Red Blood Cells 0.1 % Sodium Level 139 mmol/L (136-145) Potassium Level 3.7 mmol/L (3.5-5.1) Chloride Level 107 mmol/L (98-107) Carbon Dioxide Level 22 mmol/L (20-31) Anion Gap 10 (5-15) Blood Urea Nitrogen 11 mg/dL (9-23) Creatinine 0.83 mg/dL (0.700-1.30) Glomerular Filtration Rate Calc 115 mL/min (>90) BUN/Creatinine Ratio 13.3 (10.0-20.0) Serum Glucose 104 mg/dL (74-106) Calcium Level 9.2 mg/dL (8.7-10.4) Magnesium Level 1.9 mg/dL (1.6-2.6) Prothrombin Time 10.7 sec (9.3-11.8) Prothrombin Time INR 1.01 (0.9-1.15) Activated Partial Thromboplast Time 24.5 SEC (24.5-34.5) Total Bilirubin 0.4 mg/dL (0.2-1.0) Aspartate Amino Transferase (AST) 10 U/L (13-40) Alanine Aminotransferase (ALT) 9 U/L (7-40) Alkaline Phosphatase 59 U/L (46-116) Total Protein 5.8 g/dL (5.7-8.2) Albumin 3.7 g/dL (3.2-4.8) POC Glucose 112 mg/dl (70-106) Stool Occult Blood Positive (Negative) Stool Occult Blood Sample #3 (Negative) Test 01/14/25 20:15 01/14/25 09:26 Urine Color Light-yellow (Yellow) Urine Clarity Clear (Clear) Urine pH 6.5 (5.0-9.0) Urine Specific [place] 1.035 (1.001-1.035) Urine Protein Negative (Negative) Urine Ketones Negative (Negative) Urine Blood Negative /uL (Negative) Urine Nitrite Negative (Negative) Urine Bilirubin Negative (Negative) Urine Urobilinogen Normal mg/dL (Negative) Urine Leukocyte Esterase Negative /uL (Negative) Urine RBC 1 /hpf (0 - 3) Urine Microscopic WBC 2 /HPF (0-3) Urine Squamous Epithelial Cells None seen /hpf (<5) Urine Bacteria None seen /hpf (None Seen) Urine Glucose Normal mg/dL (Normal) Hemoglobin A1c 5.3 % A1C (<5.7) Lactic Acid Level 2.0 mmol/L (0.4-2.0) Lipase 27 U/L (12-53) Other Laboratory Tests 01/17/25 05:02 Brief Hx & Hospital Course: Discharge diagnoses: Upper GI bleed due to duodenal ulcer Acute anemia due to blood loss Abdominal pain due to duodenal ulcer Right renal cyst Leukocytosis No sepsis 39-year-old male was admitted due to hematemesis and melena due to upper GI bleed EGD showed duodenal ulcer His hemoglobin dropped from 14 to 10 but then it stabilized at around 10 No more GI bleed No more rectal bleeding He is tolerating his clear liquids diet Advance his diet to soft diet today and then discharged home afterwards on Protonix 40 mg daily Advance his diet at home slowly as tolerated He was educated about avoiding caffeine and NSAIDs and alcohol and smoking Follow up with the primary care physician as soon as possible Condition at Discharge: Stable Final Diagnosis/Problems List Upper GI bleed due to duodenal ulcer Acute anemia due to blood loss Abdominal pain due to duodenal ulcer Right renal cyst Leukocytosis No sepsis Discharge Disposition: Home SNF Discharge Will this Physician continue t: No Discharge Instruct/Medications Diet: Regular Diet comment: No caffeine, no NSAIDs, no alcohol, no smoking Activity: No Restrictions, As Tolerated Follow Up/Referral: PCP as soon as possible Medications: Avoid NSAIDs Protonix 40 mg p.o. daily Discharge Statement: "Patient was advised to return to the ER or call 911 if any headaches, dizziness, shortness of breath, chest pain, abdominal pain, bleeding, fevers, or worsening of medical condition. Patient was counseled about treatment plan, medications, possible side effects, patientverbalized understanding. All questions were answered to the best of my ability. This discharge took greater then 30 minutes in planning, reviewing documentation, counseling the patient, and discussing with other team members." ASSESSMENT ASSESSMENT Assessment Upper GI bleed due to duodenal ulcer Acute anemia due to blood loss Abdominal pain due to duodenal ulcer Right renal cyst Leukocytosis No sepsis Date of Service: January 17, 2025 Billing Provider: SILVIANO SWIFT MD Common Visit Codes: [id number] DISCH DAY >30min SILVIANO SWIFT MD January 17, 2025 10:19
[2025-01-17 13:00] VITALS: BP_SYST 124; BP_SYST 144; BP_DIAS 73; BP_DIAS 90; PULSE 60; RESP 16; TEMP 98; O2SAT 98
== END 2025-01-17 21:52 | disposition home or self-care (01) | DRG 241 ==
LOC: ER 09:12 → EDBD 09:12 → OVERFLOW 15:01 → CENTRAL 18:31
PROVIDERS: ADMIT Internal Medicine Geriatric Medicine; ATTEND Internal Medicine Geriatric Medicine
PROC: 0DB78ZX Excision of Stomach, Pylorus, Via Natural or Artificial Opening Endoscopic, Diagnostic (ICD-10-PCS; 2025-01-16)
PROC: 0W3P8ZZ Control Bleeding in Gastrointestinal Tract, Via Natural or Artificial Opening Endoscopic (ICD-10-PCS; principal; 2025-01-16 10:44)
DX: K29.70 Gastritis, unspecified, without bleeding (principal); K26.4 Chronic or unspecified duodenal ulcer with hemorrhage; D72.829 Elevated white blood cell count, unspecified; N28.1 Cyst of kidney, acquired; R73.9 Hyperglycemia, unspecified; D62 Acute posthemorrhagic anemia; F17.210 Nicotine dependence, cigarettes, uncomplicated; Z79.899 Other long term (current) drug therapy
CPT/HCPCS: 36415; 43239; 43255; 71045; 74176; 80048; 80053; 81001; 82270; 82962; 83036; 83605; 83690; 83735; 85025; 85610; 85730; 86850; 86900; 86901; 87040; 93005; 96361; 96365; 96375; 99291; G0378; J2003; J2250; J2405; J2470; J2543; J2704